=== PATIENT | male | born 1970 | race Caucasian/White ===

== ENCOUNTER 2024-02-06 22:47 | Emergency (ER) | payer OTHER, SELFPAY ==
[2024-02-06 23:00] VITALS: BP 170/106
--- NOTE | 2024-02-06 23:32 | ED.GENMED ---
History of Present Illness
<DERRELL Jaramillo - Last Filed: 02/07/24 01:12>
General
Chief Complaint: Ear Problem
Source: patient
Exam Limitations: none
Time Seen by Provider: 02/06/24 23:11
Nursing documentation reviewed up to this point in time: agreed with
History of Present Illness
History of Present Illness:
Patient is 53yo M who presents w/ R ear pain after irrigation at PCP today. PCP was irrigating ear for wax impaction when pt heard a pop following by pain, dizziness, sweating, and nausea. They told him that TM perforation was unlikely w/ this
procedure but they could not visualize TM. Attempted irrigation again which made pt feel dizzy and nauseous again. Pt reports a few hours later at home he started having brown discharge from R ear which turned into wax chunks. He has photos showing
a yellow/brown clump of wax that came out. Reports increased pain after this. He reports still feeling like there is wax so he tried to irrigate ear in shower. Reports continued R ear pain that has radiated down into neck. States clear, sticky
discharge drips out occasionally.
Past History
<DERRELL Jaramillo - Last Filed: 02/07/24 01:12>
Past History
ED Past Medical History: HTN and Psychiatric
ED Past Surgical History: None
Social History
Tobacco: Non-smoker
Alcohol: None
Drug: Marijuana
Personal:
Living: with family
Employment: Not employed
Review of Systems
<DERRELL Jaramillo - Last Filed: 02/07/24 01:12>
Review of Systems
Constitutional: Denies fever, fatigue or chills
Respiratory: Denies trouble breathing
Cardiac: Denies chest pain or palpitations
ABD/GI: Reports nausea; Denies abdominal pain, vomiting, diarrhea or constipated
Musculoskeletal: Reports neck pain
Phy Exam
<DERRELL Jaramillo - Last Filed: 02/07/24 01:12>
General Physical Exam
General Presentation: moderate distress
General age: appears stated age
General Skin: warm and dry
General Habitus: normal
General Mental: alert
ENT Exam
ENT Exam: other (large, brown wax impaction, unable to visualize TM )
Additional ENT: yellow, liquid wax at opening of ear canal; edema of ear canal
Cardiovascular Exam
Cardiovascular Exam: regular rate/rhythm, no edema, no gallop and no murmur
Pulmonary Exam
Pulmonary Exam: lungs clear, no respiratory distress, no rales, no crackles, no rhonchi and no wheezing
Neurological Exam
Neurological Exam: alert, oriented x3 and speech normal
Course
<DERRELL Jaramillo - Last Filed: 02/07/24 01:12>
Orders/Labs/Results
Orders:
Orders
02/06/24 23:55
Ibuprofen [Motrin] 600 mg PO NOW STA
02/07/24 00:12
Neomycin/Polymyxin/Hc [Cortisporin Otic Suspension] See Dose Instructions OTIC NOW STA
Vital Signs
Initial and Last Documented VS:
Initial Vital Signs
Temp Pulse Resp BP Pulse Ox
98.6 F 75 20 170/106 99
02/06/24 23:00 02/06/24 23:00 02/06/24 23:00 02/06/24 23:00 02/06/24 23:00
Last Documented Vital Signs
Temp Pulse Resp BP Pulse Ox
98.6 F 75 20 160/101 99
02/06/24 23:00 02/06/24 23:00 02/06/24 23:00 02/07/24 00:17 02/06/24 23:00
<Dawood Pacheco DO - Last Filed: 02/07/24 00:05>
Orders/Labs/Results
Orders:
Orders
02/06/24 23:55
Ibuprofen [Motrin] 600 mg PO NOW STA
02/07/24 00:12
Neomycin/Polymyxin/Hc [Cortisporin Otic Suspension] See Dose Instructions OTIC NOW STA
Vital Signs
Initial and Last Documented VS:
Initial Vital Signs
Temp Pulse Resp BP Pulse Ox
98.6 F 75 20 170/106 99
02/06/24 23:00 02/06/24 23:00 02/06/24 23:00 02/06/24 23:00 02/06/24 23:00
Last Documented Vital Signs
Temp Pulse Resp BP Pulse Ox
98.6 F 75 20 160/101 99
02/06/24 23:00 02/06/24 23:00 02/06/24 23:00 02/07/24 00:17 02/06/24 23:00
<DERRELL Jaramillo - Last Filed: 02/07/24 01:12>
MDM/Problems Addressed
Differential Diagnosis Includes:
wax impaction, TM perforation, otitis externa
<DERRELL Jaramillo - Last Filed: 02/07/24 01:12>
*Critical Care Note
Total Time (30-74mins, 75-104mins- exclusive of procedures): Not Applicable
ED Attending Note
<DERRELL Jaramillo - Last Filed: 02/07/24 01:12>
-
Portions of this chart may have been created with voice recognition software.� Occasional wrong word or��sound alike� substitutions may have occurred due to the inherent limitations of voice recognition software.
<Dawood Pacheco DO - Last Filed: 02/07/24 00:05>
ED Attending Note
Patient seen and examined by attending physician: Yes
I performed the substantive portion of visit, reviewed & personally made and approve the management plan that is documented in note by myself or SHAHEED.: Yes
ED Attending Note:
Pleasant 53-year-old male presents to the emergency department with right ear pain. He was at his family doctors and had an earwax disimpaction today. This was his left he developed severe ear pain. There was concern for tympanic membrane
perforation. He was told it is unlikely since the tympanic membrane was not visualized in the office. Patient denies fever or chills. Patient was seen in conjunction with the PA student. I have reviewed and agree with the history and treatment
plan presented. On my independent physical exam, patient is awake, alert, and oriented x3 minimal acute distress. Left ear has some cerumen but otherwise clear. Tympanic membrane intact. Right ear swollen with cerumen. Tympanic membrane not
visualized. With the patient's consent I was able to remove some more wax. This fracture superficial. Due to the swelling, tympanic membrane was still not visualized. Given the possibility for instrumentation of the TM, patient started on
ciprofloxacin/dexamethasone otic solution. He will follow-up with his primary care provider on Saturday for continued treatment.
Discharge Plan
Departure
Patient Disposition: Home (Routine Discharge)
Date of Disposition: 02/07/24
Time of Disposition: 00:00
Patient with high blood pressure during this ER visit?: Yes
Discharge Problem:
Acute Otitis Externa, Excessive cerumen in ear canal
Instructions: Ear Wax Impaction (DC), Outer Ear Infection (DC), Ear Wax Impaction ED
Prescriptions:
New
ciprofloxacin-dexamethasone 0.3-0.1 % drops,suspension
4 drp otic (ear) BID 7 Days Qty: 7.5 0RF
No Action
multivitamin Tablet
1 tab PO DAILY
losartan 50 mg Tablet
50 mg PO DAILY
cyclobenzaprine 10 mg Tablet
10 mg PO HS PRN (Reason: teeth grinding )
carvedilol 6.25 mg Tablet
6.25 mg PO BID
atorvastatin 20 mg Tablet
20 mg PO DAILY
sildenafil 100 mg Tablet
100 mg PO DAILY PRN (Reason: sexual activity )
Patient Comments:
pt says that he takes a portion of the tablet
garlic 1,000 mg Capsule
1,000 mg PO DAILY
oxycodone-acetaminophen 5-325 mg Tablet
1 tab PO Daily PRN (Reason: back pain)
calcium carbonate [Calcium 500] 500 mg calcium (1,250 mg) Tablet
500 mg PO DAILY
methotrexate sodium 2.5 mg Tablet
10 mg PO MO
buspirone 30 mg Tablet
30 mg PO DAILY
folic acid 800 mcg Tablet
0.8 mg PO DAILY
magnesium 200 mg Tablet
400 mg PO DAILY
bupropion HCl 300 mg Tablet Extended Release 24 Hr
300 mg PO DAILY
zinc 50 mg Capsule
50 mg PO DAILY
cholecalciferol (vitamin D3) [Vitamin D3] 50 mcg (2,000 unit) Tablet
50 mcg PO DAILY
Xeljanz XR 11 mg Tablet Extended Release 24 Hr
11 mg PO DAILY
Vitamin C
500 mg PO DAILY
potassium bicarbonate
99 mg PO DAILY
turmeric
1 cap PO DAILY
Patient Comments:
Pt does not know mg
Referrals:
Darryl Taylor MD [Family Provider] -
Activity Restrictions/Additional Instructions:
It was a pleasure meeting you and taking part in your care. We hope for your continued healing and wellness.
Please read discharge instructions in their entirety. However, they are for general education and may not describe your exact diagnosis at discharge. Information on your ER visit and medical conditions were discussed with you along with appropriate
follow up information...
If indicated, please take your medications as instructed and indicated on discharge paperwork.
Please schedule a follow up appointment as directed. Call to schedule an appointment
Please return to the emergency department with ANY change in, persisting, or worsening of symptoms. If any of your symptoms do not improve, or persist, or become more severe within 6-12 hours, please return to the emergency department for further
care.
Please return to the emergency department if you develop a headache, neck pain/stiffness, fever greater than 100.4F, chest pain, shortness of breath, persistent nausea, vomiting, slurred speech, difficulty walking, numbness/tingling, weakness, signs
of infection or any other symptoms that are worrisome to you.
If you have any questions or concerns please do not hesitate to call the Hospital at or E-mail me directly at [email or web address]
Interventions
Interventions:
*Risk Screen - Suicide Last Done: 02/06/24 23:00
*General Assessment Last Done: 02/06/24 23:00
*Neglect/Abuse Screening Last Done: 02/06/24 23:00
ED- Fall Risk Assessment Last Done: 02/06/24 23:00
*ED COVID-19 Vaccine History Last Done: 02/06/24 23:00
Discharge Date and Time
Print Language: SAMI
[2024-02-07] MEDS: MOTRIN 600 MG PO (00:11)
[2024-02-07 00:17] VITALS: BP 160/101
[2024-02-07] MEDS: CORTISPORIN OTIC SUSPENSION 5 DROP OTIC (00:17)
== END 2024-02-07 00:20 | disposition home or self-care (01) ==
LOC: EMR 22:47
PROVIDERS: EMERGENCY PHYSICIAN Student in an Organized Health Care Education/Training Program; FAMILY PHYSICIAN Internal Medicine
DX: H60.501 Unspecified acute noninfective otitis externa, right ear (principal); H61.21 Impacted cerumen, right ear; I10 Essential (primary) hypertension
CPT/HCPCS: 99282